=== PATIENT | male | born 1940 | race Caucasian/White ===

== ENCOUNTER 2016-04-25 14:28 | Observation (INO) | payer OTHER ==
--- NOTE | ~2016-04-25 | HP ---
History And Physical [place] [facility] [place]. [address] NAME: TOMEKA COTTO : 44 STATUS : ADM Annabelle PAT#: [id number] AGE: 75 ADM/REG DATE : 04/25/16 MR#: [id number] REPORT SERV DATE: 04/26/16 DICTATED BY: ERNESTO FELDER DATE: 04/26/16 REPORT STATUS : Draft TRANSCRIBED BY: MODL DATE: 04/26/16 DATE OF ADMISSION: 04/25/2016 RETAIL MANAGER: Tico Dias M.D. (had a new patient appointment today). CHIEF COMPLAINT: Similar chest and back discomfort. HISTORY OF PRESENT ILLNESS: This is a very pleasant 75-year-old white gentleman with known history of CAD, status post stents to RCA in 1990 and a catheterization in 2003 that revealed patent stents at that time with [id number] LAD disease with an EF of 55%. The patient states that over the past two days, he has experienced "tremendous chest and back pain" described as "the back side of my heart" similar to his previous cardiac events. He did not take any nitroglycerin as that gives him a significant headache, and he also believes his prescription may be outdated. He reports that chest discomfort radiates up to his left shoulder rated a 10/10 at its most intense. He now rates his chest discomfort a 3/10. It is not reproducible on exam with palpation across his posterior thorax and his anterior chest. He reports some associated diaphoresis. He denies any shortness of breath, nausea, dizziness, or belching. He states he had pain "all day" Monday and Monday. Yesterday prior to coming to the hospital, the chest pain resolved on its own. The patient reports a personal history of two to three heart attacks. Denies history of stroke, DVT, or pulmonary embolus. The patient was recently treated with Rifampin for a skin infection, course completed. Denies palpitations. No syncopal episodes. Denies PND or orthopnea. PAST MEDICAL HISTORY: 1. CAD. a. History of MS "two or three.". b. In 1998, stents to RCA. c. In 2003, catheterization by Dr. Alvarado with patent stents to the RCA with [id number] LAD disease, EF 55%. 2. Hypertension. 3. Dyslipidemia. 4. AODM. 5. Occasional PVCs. 6. Positive family history for early CAD. 7. Remote tobacco abuse. PAST SURGICAL HISTORY: Skin cancers removed. SOCIAL HISTORY: He is . He has two children. He is retired from the [employer]. He is the primary caregiver for a 42-year-old paraplegic son. He does not have an exercise routine. He quit smoking in 1998. He consumes four to six ounces of 100 proof liquor daily. Denies illicits. FAMILY HISTORY: Father at the age of 44 of a heart attack. Mother at 67 with History And Physical [address] [place]. [address] NAME: TOMEKA COTTO : 44 STATUS : ADM Annabelle PAT#: [id number] AGE: 75 ADM/REG DATE : 04/25/16 MR#: [id number] REPORT SERV DATE: 04/26/16 DICTATED BY: ERNESTO FELDER DATE: 04/26/16 REPORT STATUS : Draft TRANSCRIBED BY: BRADLEY DATE: 04/26/16 heart failure and a long history of smoking. Sister of breast cancer. REVIEW OF SYSTEMS: A 14-point review of systems was performed, significant for HPI including the patient confirms that he takes 975 mg of aspirin twice daily, uncoated. A lengthy discussion with patient regarding the excessive dose of aspirin. He states he has done this for 10 years. He has no problems. He denies any melena, bleeding, or epistaxis and states "I will take that under advisement." Otherwise, complete review of systems was obtained and negative. ALLERGIES: ALLERGY TO TRAMADOL, "IT KILLED ME," PEANUTS, AND TOMATOES, SINUS ISSUES. HOME MEDICINES: Norvasc 5 mg daily; aspirin 975 mg twice daily; Tenormin 25 mg nightly; hydrochlorothiazide 25 mg daily; nitroglycerin p.r.n.; Altace 10 mg nightly; rifampin 300 mg b.i.d. for 14 days, complete; simvastatin 40 mg nightly; and potassium gluconate over-the- counter daily. PHYSICAL EXAMINATION: VITAL SIGNS: Bilateral blood pressures on arrival, right 149/69 and left 147/69, this morning 125/59; pulse 62; respirations 18; temperature 99.6; and O2 saturation 93% on room air. Height 6 feet 0 inches, weight 208 pounds, and BMI of 28.2. GENERAL: Cooperative, in no apparent distress. HEENT: Pupils 2 mm, sclera nonicteric. Nares patent. Moist mucous membranes. No xanthelasma. NECK: Trachea midline, no thyromegaly. No JVD. No bruits. LYMPH: No cervical lymphadenopathy. No supraclavicular lymphadenopathy. RESPIRATORY: Unlabored respirations. Breath sounds clear bilaterally to posterior auscultation. No wheezes or rhonchi. CARDIOVASCULAR: Regular rate. No murmur, rub or gallop appreciated. Extremities without edema. Pulses 2+ bilaterally. ABDOMEN: Soft, nontender, nondistended, normal bowel sounds auscultated throughout. No organomegaly. SKIN: Warm, dry extremities. No pallor, or cyanosis. PSYCHIATRIC: Appropriate affect. Alert, oriented x3. LABORATORY DATA: Troponin of 0.02 twice. Potassium 3.7 (previously 3.0), BUN 33, creatinine 1.20, glucose 225, and magnesium 2.1. WBC 4.0, hemoglobin 15.7, hematocrit 45.5, and platelet count 190,000. EKG: Sinus rhythm, first-degree AV block, PRWP, inferior Q-waves, occasional PVC. MPI in 04/2015: Basal to mid inferior infarct without ischemia, EF 49%. Occasional PVC. [place]atheter[place] [address] Alvarado: Patent stents to RCA, [id number] LAD disease, and EF 55%. ASSESSMENT AND PLAN: 1. Atypical chest pain but reported as similar previous cardiac events. Two troponins negative. EKG appears stable. The patient has been held n.p.o. We will proceed with MPI today. The patient will be discharged home if low risk and no ischemia to follow History And Physical [address] [address] NAME: TOMEKA COTTO : 44 STATUS : ADM Annabelle PAT#: [id number] AGE: 75 ADM/REG DATE : 04/25/16 MR#: [id number] REPORT SERV DATE: 04/26/16 DICTATED BY: ERNESTO FELDER DATE: 04/26/16 REPORT STATUS : Draft TRANSCRIBED BY: BRADLEY DATE: 04/26/16 up with his PCP and Dr. Dias as a new patient as warranted. If anything suggestive of ischemia, a Cardiology referral will be initiated. 2. Coronary artery disease. Continue home medications. 3. Excessive aspirin use. Counseled regarding excessive aspirin use and the use of alcohol. The patient will not decrease his aspirin use to even 325 daily as he has done this for 10 years without any problems. 4. Hypertension. Monitor blood pressure and continue home medications. 5. Dyslipidemia. Continue statin. 6. Adult-onset diabetes mellitus. No insulin. Medicines reported. Clarify home medications and level 1 sliding scale correction. 7. Hypokalemia. Repleted per protocol, now 3.7. STACEY/MODL MARTINEZ Ren, CASING FLUID TENDER-BC / [id number] CC: MARTINEZ Ren, CASING FL[employer] T[employer]ER-BC Yyeo Wilburn MD
[~2016-04-25 14:28] MED LIST: ALTACE10 MG PO; ASABAYER PO; ATEN25 PO; HYDROCHLOROT25 MG PO; MINOCIN100 PO; NORV5 PO; PAIN RX PO; POTASSIUM GLUCONATE PO; ULTRAM50 PO; ZOCOR40 PO; [UNRECOGNIZED DRUG - MIXTURE] TOP
[2016-04-25 16:21] LABS: BASOPHILS 0.5 %; BASOPHILS ABSOLUTE 0.02 10/3/uL (0.0-0.16); EOSINOPHILS 1.5 %; EOSINOPHILS ABSOLUTE 0.06 10/3/uL (0.0-0.53); HEMATOCRIT 45.5 % (40.0-51.0); HEMOGLOBIN 15.7 g/dL (13.6-17.8); LYMPHOCYTES 18.4 %; LYMPHOCYTES ABSOLUTE 0.74 10/3/uL (0.67-4.30); MEAN CORPUS HGB CONC 34.5 g/dL (32.0-36.0); MEAN CORPUSCULAR HEMOGLOB 30.7 pg (26.0-34.0); MEAN CORPUSCULAR VOLUME 88.9 fL (80-100); MEAN PLATELET VOLUME 9.5 fL (9.2-13.0); MONOCYTES 6.2 %; MONOCYTES ABSOLUTE 0.25 10/3/uL (0.21-1.20); NEUTROPHILS 73.4 %; NEUTROPHILS ABSOLUTE 2.95 10/3/uL (2.02-8.40); PLATELET COUNT 190 10/3/uL (150-400); RBC DISTRIBUTION WIDTH 13.2 % (12.0-16.0); RED CELL COUNT 5.12 10/6/uL (4.7-6.1)
[2016-04-25 16:22] LABS: ER CBC TAT 0 Hrs 08 Mins; MANUAL DIFF NO %
[2016-04-25 16:24] LABS: INTERNATIONAL NORMAL RATI 1.1 UNITS (-); PARTIAL THROMBO TIME 31.3 SEC (22.5-37.2); PROTIME (NOT ORD) 14.2 SEC (12.0-14.5)
[2016-04-25 16:35] LABS: BUN (BLOOD UREA NITROGEN) 33 MG/DL (6-23); CALCIUM, SERUM 8.6 MG/DL (8.5-10.4); CHEST PAIN PROFILE TAT 0 Hrs 21 Mins; CHLORIDE, SERUM 95 MMOL/L (96-112); CO2 (CARBON DIOXIDE) 23 MMOL/L (24-34); GFR AFRICAN AMERICAN 69 ML/MIN (>=60); GFR NON AFRICAN AMERICAN 60 ML/MIN (>=60); GLUCOSE, SERUM 225 MG/DL (60-99); SODIUM, SERUM 132 MMOL/L (135-148); TROPONIN I 0.02 NG/ML (<0.05)
[2016-04-25] MEDS ORDERED: HYDROCHLOROT25 MG PO (17:45)
[2016-04-25] MEDS ORDERED: NORV5 PO (17:45)
[2016-04-25] MEDS ORDERED: ASABAYER PO (17:46)
[2016-04-25] MEDS ORDERED: ZOCOR40 PO (17:46)
[2016-04-25] MEDS ORDERED: ATEN25 PO (17:46)
[2016-04-25] MEDS ORDERED: POTASSIUM GLUCONATE PO (17:47)
[2016-04-25] MEDS ORDERED: ALTACE10 MG PO (17:47)
[2016-04-25] MEDS ORDERED: RIFADIN 300 MG300 MG PO (17:58)
[2016-04-25] MEDS ORDERED: NITROSTAT0.4 MG SL (17:59)
== END 2016-04-26 17:24 | disposition home or self-care (01) ==
LOC: ER 14:28 → CDU1 17:43 → CDU2 20:05
PROVIDERS: Emergency Medicine
DX: R07.89 Other chest pain (principal); I25.10 Atherosclerotic heart disease of native coronary artery without angina pectoris; I10 Essential (primary) hypertension; I25.2 Old myocardial infarction; I49.3 Ventricular premature depolarization; E78.5 Hyperlipidemia, unspecified; E11.9 Type 2 diabetes mellitus without complications; Z95.5 Presence of coronary angioplasty implant and graft; Z82.49 Family history of ischemic heart disease and other diseases of the circulatory system; Z87.891 Personal history of nicotine dependence; Z98.890 Other specified postprocedural states; Z80.3 Family history of malignant neoplasm of breast; Z88.5 Allergy status to narcotic agent; Z91.010 Allergy to peanuts; Z91.018 Allergy to other foods; Z79.82 Long term (current) use of aspirin; Z79.899 Other long term (current) drug therapy
CPT/HCPCS: 71020; 78452; 80048; 82962; 83735; 84132; 84484; 85025; 85610; 85730; 93005; 93017; 93306; 99285; A9270-GY; A9502; G0378; J0153